=== PATIENT | male | born 1995 | race Caucasian/White ===

== ENCOUNTER 2016-05-29 16:40 | Emergency (ER) | payer OTHER ==
[2016-05-29] MEDS ORDERED: LIDOCAINE-MPF 1% 5 ML VIAL ONE (16:53)
== END 2016-05-29 17:30 | disposition home or self-care (01) ==
DX: L02.511 Cutaneous abscess of right hand (principal); L03.011 Cellulitis of right finger

== ENCOUNTER 2016-05-31 20:22 | Emergency (ER) | payer OTHER ==
[2016-05-31] MEDS ORDERED: LIDOCAINE 2% 10 ML MDV ONE ×2 (21:55→22:28)
[2016-05-31] MEDS ORDERED: cefTRIAXone 1 GM VIAL IM STA (22:43)
[2016-05-31] MEDS ORDERED: cefTRIAXone 1 GM VIAL ONE (22:47)
[2016-05-31] MEDS ORDERED: WATER FOR INJECTION,STERILE 10 ML ONE (22:47)
[2016-05-31] MEDS ORDERED: LIDOCAINE-MPF 1% 5 ML VIAL ONE (22:50)
[2016-05-31] MEDS ORDERED: HYDROcod/ACET 5/325 Prepack 6 PO ONE ×2 (23:19→23:30)
== END 2016-05-31 23:35 | disposition home or self-care (01) ==
DX: L03.011 Cellulitis of right finger (principal)

== ENCOUNTER 2016-06-03 10:03 | Day surgery (SDC) | payer OTHER ==
[2016-06-03] MEDS ORDERED: VANCOMYCIN INJ 1 GM in SODIUM CHLORIDE 0.9% 250 ML IV SCH (10:30)
[2016-06-03] MEDS ORDERED: LACTATED RINGERS 1,000 ML IV ONE (10:57)
[2016-06-03] MEDS ORDERED: BUPIVACAINE 0.25% PF 30 ML VIAL SUBQ ONE (11:59)
[2016-06-03] MEDS ORDERED: LIDOCAINE 1% 50 ML MDV SUBQ ONE (12:00)
[2016-06-03] MEDS ORDERED: MIDAZOLAM 2 MG/2 ML VIAL IVP ONE (12:15)
[2016-06-03] MEDS ORDERED: PROPOFOL 200 MG/20 ML VIAL IVP ONE (12:15)
[2016-06-03] MEDS ORDERED: fentaNYL 100 MCG/2 ML VIAL IVP ONE (12:15)
[2016-06-03] MEDS ORDERED: LIDOCAINE-MPF 2% 5 ML VIAL IM ONE (12:15)
[2016-06-03] MEDS ORDERED: diphenhydrAMINE INJ 50 MG/ML VIAL ONE (12:27)
[2016-06-03] MEDS ORDERED: oxyCOD/ACETAMIN 5 MG/325 MG TABLET PO ONE (12:54)
== END 2016-06-03 10:04 | disposition home or self-care (01) ==
PROC: 0LB70ZZ Excision of Right Hand Tendon, Open Approach (ICD-10-PCS; principal; 2016-06-03 13:00)
DX: M00.841 Arthritis due to other bacteria, right hand (principal); B96.89 Other specified bacterial agents as the cause of diseases classified elsewhere; M20.011 Mallet finger of right finger(s); L02.511 Cutaneous abscess of right hand; L03.011 Cellulitis of right finger; F17.200 Nicotine dependence, unspecified, uncomplicated; Z82.49 Family history of ischemic heart disease and other diseases of the circulatory system
CPT/HCPCS: 11043; 36415; 85025; 85651; 87070; 87075; 87205; A9270; J3370; J7120

== ENCOUNTER 2016-06-29 19:52 | Emergency (ER) | payer OTHER ==
[2016-06-29] MEDS ORDERED: CEPHALEXIN 250 MG Prepack 8 PO ONE ×2 (20:35→20:36)
== END 2016-06-29 20:43 | disposition home or self-care (01) ==
DX: L03.011 Cellulitis of right finger (principal)

== ENCOUNTER 2017-07-13 02:13 | Emergency (ER) | payer OTHER ==
[2017-07-13 02:21] VITALS: BP 142/98
[2017-07-13] MEDS ORDERED: AMOXICILLIN 250 MG CAPSULE PO STA (02:27)
[2017-07-13] MEDS ORDERED: IBUPROFEN 600 MG TABLET PO STA (02:27)
--- NOTE | 2017-07-13 02:31 | ED Physician Documentation ---
PD HPI HEENT - Stated complaint Stated Complaint: LT EAR PAIN - Chief complaint Chief Complaint: Heent - History obtained from History obtained from: Patient, Family - History of Present Illness Timing - onset: How many days ago (4) Timing - details: Gradual onset, Still present Location: Left ear Associated symptoms: Fever Recently seen: Not recently seen - Additional information Additional information: Patient is a 21 year old male with no significant past medical history who is presenting to the emergency department for ear pain. according to patient and he has had wax in both his ears, and worsening ear pain. states that the patient has been hot to touch recently as well. Review of Systems Constitutional: reports: Fever Eyes: denies: Decreased vision, Photophobia Ears: reports: Ear pain, Drainage/discharge Nose: denies: Rhinorrhea / runny nose, Congestion Throat: reports: Sore throat Cardiac: denies: Chest pain / pressure, Palpitations Respiratory: denies: Dyspnea, Cough, Wheezing GI: denies: Nausea, Vomiting : reports: Reviewed and negative Skin: denies: Rash, Lesions Musculoskeletal: denies: Neck pain, Back pain, Extremity pain Neurologic: denies: Headache Immunocompromised: denies: Immunocompromised PD PAST MEDICAL HISTORY - Past Medical History Cardiovascular: None Respiratory: None Endocrine/Autoimmune: None GI: None : None HEENT: Other Psych: None Musculoskeletal: Other Derm: Other - Past Surgical History Past Surgical History: Yes - Present Medications Home Medications: Ambulatory Orders Medication Instructions Recorded Confirmed Amoxicillin 1,000 mg PO BID 10 Days capsule 07/13/17 Carbamide Peroxide Otic Drop 10 drops OT BID #1 bottle 07/13/17 [Debrox Otic Drops] - Allergies Allergies/Adverse Reactions: Allergies Allergy/AdvReac Type Severity Reaction Status Date / Time No Known Drug Allergies Allergy Verified 07/13/17 02:20 - Social History Does the pt smoke?: No Smoking Status: Never smoker Does the pt drink ETOH?: No Does the pt have substance abuse?: No - Immunizations Immunizations are current?: Yes Immunizations: TDAP current <10years - POLST Patient has POLST: No PD ED PE NORMAL - Vitals Vital signs reviewed: Yes - General General: Alert and oriented X 3, No acute distress - HEENT HEENT: Atraumatic, PERRL, Moist mucous membranes - Neck Neck: Supple, no meningeal sign - Cardiac Cardiac: RRR - Respiratory Respiratory: No respiratory distress - Abdomen Abdomen: Non distended - Derm Derm: Normal color, No rash - Extremities Extremities: No deformity - Neuro Neuro: Alert and oriented X 3 Eye Opening: Spontaneous Motor: Obeys Commands Verbal: Oriented GCS Score: 15 PD ED PE EXPANDED - HEENT HEENT: L TM red, L TM bulging, L TM loss of landmarks, Other (bilateral cerumen with evidence of serous otitis media on the left) Results - Vitals Vitals: Vital Signs - 24 hr 07/13/17 02:17 Temperature 36.5 C Heart Rate 55 L Respiratory 16 Rate Blood Pressure 142/98 H O2 Saturation 100 Oxygen O2 Source Room air PD MEDICAL DECISION MAKING - ED course Complexity details: reviewed old records, reviewed results, re-evaluated patient , considered differential, d/w patient, d/w family ED course: Patient was seen and examined at bedside. Patient was well appearing and in no distress. Patient's finding were consistent with otitis media. patient was treated with amoxicillin and ibuprofen. patient required no further work up and was stable for discharge with outpatient follow up. Departure - Departure Disposition: 01 Home, Self Care Clinical Impression: Otitis media Condition: Good Instructions: ED Otitis Media Acute Adult Follow-Up: primary,care provider [Other] - As Needed Prescriptions: Amoxicillin 1,000 mg PO BID 10 Days capsule Carbamide Peroxide Otic Drop [Debrox Otic Drops] 10 drops OT BID #1 bottle Comments: Your symptoms today are being caused by an ear infection. You had your first dose of antibiotics and will be on them for 10 days. You can also use the ear drops to try to keep your ears clean. You can take motrin or tylenol as needed for pain. You should follow up with your doctor if your symptoms don't improve. You may return to the emergency department at any time for new, worsening or uncontrollable symptoms.
== END 2017-07-13 02:36 | disposition home or self-care (01) ==
LOC: ED 02:13
DX: H65.92 Unspecified nonsuppurative otitis media, left ear (principal); H61.23 Impacted cerumen, bilateral
CPT/HCPCS: 99283; A9270